=== PATIENT | female | born 1960 | race Caucasian/White ===

== ENCOUNTER 2023-03-23 05:16 | Emergency (ER) | payer OTHER ==
[~2023-03-23] VITALS: Ht 170.2 cm; Wt 102.0 kg
[2023-03-23 05:28] VITALS: TEMP 98
[2023-03-23 05:51] LABS: APPEARANCE,URINE TURBID (CLEAR); BILIRUBIN,URINE NEGATIVE (NEGATIVE); COLOR,URINE LIGHT ORANGE (YELLOW); GLUCOSE, URINE (UA) NEGATIVE (NEGATIVE); KETONES,URINE NEGATIVE (NEGATIVE); LEUKOCYTE ESTERASE ,URINE LARGE (NEGATIVE); NITRATE,URINE NEGATIVE (NEGATIVE); OCCULT BLOOD,URINE LARGE (NEGATIVE); PH,URINE 5.5 (5.0-8.0); PROTEIN,URINE 30-70 mg/dL (NEGATIVE); SPECIFIC GRAVITIY, URINE 1.022 (1.003-1.030); UROBILINOGEN,URINE <=1.0 mg/dL (<=1.0)
[2023-03-23 06:02] LABS: BACTERIA,URINE Moderate /HPF (None Seen); RBC,URINE 51-100 /HPF (0-2); SQUAMOUS EPITHELIAL CELL,UR Few /LPF (None Seen)
[2023-03-23 06:27] VITALS: BP 143/86; PULSE 60; RESP 16
[2023-03-23] MEDS ORDERED: ACET-66 PO (06:41)
[2023-03-23] MEDS ORDERED: PHEN-674 PO (06:41)
[2023-03-23] MEDS ORDERED: MICO45CR76 VG (06:41)
[2023-03-23] MEDS ORDERED: CEPH-558 PO (06:41)
[2023-03-23] MEDS: ACETAMINOPHEN 500 MG TABLET PO ONE (06:46)
[2023-03-23] MEDS: CEPHALEXIN MONOHYDRATE 500 MG CAPSULE PO ONE (06:46)
[2023-03-23] MEDS: PHENAZOPYRIDINE HCL 100 MG TABLET PO ONE (06:47)
== END 2023-03-23 06:53 | disposition home or self-care (01) ==
LOC: EMS 05:16
DX: N39.0 Urinary tract infection, site not specified (principal)
CPT/HCPCS: 81001; 87086; 87186; 99284; Z7502; Z7610

== ENCOUNTER 2023-08-29 11:44 | Emergency (ER) | payer OTHER ==
[~2023-08-29] VITALS: Ht 185.4 cm; Wt 72.7 kg
[~2023-08-29 11:44] MED LIST: ACET-66 PO; CEPH-558 PO; MICO45CR76 VG; PHEN-674 PO
[2023-08-29 11:47] VITALS: BP 143/88; PULSE 97; RESP 18; TEMP 97.7
== END 2023-08-29 11:53 | disposition left against medical advice (07) ==
LOC: EMS 11:44
DX: R07.89 Other chest pain (principal); M79.605 Pain in left leg; M79.604 Pain in right leg; R42 Dizziness and giddiness; Z53.21 Procedure and treatment not carried out due to patient leaving prior to being seen by health care provider